=== PATIENT | female | born 1995 | race Caucasian/White ===

== ENCOUNTER 2021-11-12 18:02 | Emergency (ER) | payer SELFPAY ==
[~2021-11-12] VITALS: Ht 167.6 cm; Wt 77.0 kg
[2021-11-12 18:12] VITALS: BP 116/81
[2021-11-12] MEDS ORDERED: CYCLOBENZAPRINE 10MG TABLET PO STA (21:44)
[2021-11-12] MEDS ORDERED: LIDOCAINE 5% PATCH TOP SCH (21:45)
[2021-11-12] MEDS ORDERED: CYCL5TAB MT (22:40)
== END 2021-11-12 22:50 | disposition home or self-care (01) ==
LOC: ER 18:02
DX: S06.0X0A Concussion without loss of consciousness, initial encounter (principal); V43.62XA Car passenger injured in collision with other type car in traffic accident, initial encounter; Y93.89 Activity, other specified; Y92.488 Other paved roadways as the place of occurrence of the external cause
CPT/HCPCS: 81025; 99284